=== PATIENT | male | born 1995 | race African-American/Black ===

== ENCOUNTER 2018-04-30 15:09 | Emergency (ER) | payer SELFPAY ==
[2018-04-30] MEDS ORDERED: Ibuprofen 800 MG TAB ONE (15:29)
== END 2018-04-30 15:44 | disposition home or self-care (01) ==
LOC: BURERS 15:09
DX: G56.01 Carpal tunnel syndrome, right upper limb (principal); F17.210 Nicotine dependence, cigarettes, uncomplicated
CPT/HCPCS: 99283

== ENCOUNTER 2019-05-21 14:33 | Emergency (ER) | payer SELFPAY ==
[2019-05-21] MEDS ORDERED: Acetaminophen/Codeine 30-300mg Tablet ONE (14:50)
--- NOTE | 2019-05-21 17:44 | RAD ---
RIGHT KNEE FOUR VIEWS: 05/21/19 The tuberosity of the fibular head has been avulsed and retracted posteriorly, presumably by the waqar ps femoris tendon. The fragment is now located posteriorly and lateral to its normal position. The ti tiffanie and femur appear intact. There might be a small joint effusion. IMPRESSION: Avulsion of the top of the fibular head with posterolateral retraction of the fracture fragment. POS: HOME
== END 2019-05-21 15:58 | disposition home or self-care (01) ==
LOC: BURERS 14:33
DX: S82.831A Other fracture of upper and lower end of right fibula, initial encounter for closed fracture (principal); F17.210 Nicotine dependence, cigarettes, uncomplicated; W03.XXXA Other fall on same level due to collision with another person, initial encounter